=== PATIENT | female | born 1950 | race African-American/Black ===

== ENCOUNTER 2021-12-24 19:42 | Emergency (ER) | payer SELFPAY ==
[~2021-12-24] VITALS: Ht 160 cm; Wt 96.0 kg
[2021-12-24] MEDS ORDERED: ACETAMINOPHEN 325MG TABLET PO ONE (20:00)
[2021-12-24 20:29] LABS: BASOPHILS % 0.8 % (0.0-2.0); EOSINOPHILS % 1.9 % (0.0-5.0); HEMOGLOBIN. 9.9 g/dL (12.0-16.0); LYMPHOCYTES % 16.1 % (20.0-50.0); MEAN CORPUSCULAR HEMOGLOBIN 27.1 pg (28.0-32.0); MEAN CORPUSCULAR VOLUME 82.4 fL (81.0-99.0); MEAN PLATELET VOLUME 7.4 fl (7.4-10.4); MONOCYTES % 6.5 % (2.0-8.0); NEUTROPHILS % 74.7 % (40.0-76.0); PLATELET 435 x1000/uL (130-400); RED BLOOD CELL COUNT 3.64 mill/uL (4.2-5.4); RED CELL DISTRIBUTION WIDTH 17.6 % (11.6-14.6)
[2021-12-24 20:42] LABS: CHLORIDE 106 mEq/L (98-107)
[2021-12-24] MEDS ORDERED: ACET-2708 MT (22:17)
[2021-12-24] MEDS ORDERED: GABA-529 MT (22:17)
[2021-12-25] MEDS ORDERED: GABAPENTIN 100MG CAPSULE PO ONE
[2021-12-25 00:20] VITALS: BP 129/80
== END 2021-12-25 00:25 | disposition home or self-care (01) ==
LOC: ER 19:42
DX: M79.89 Other specified soft tissue disorders (principal); M79.671 Pain in right foot; M79.672 Pain in left foot; E11.9 Type 2 diabetes mellitus without complications; I10 Essential (primary) hypertension
CPT/HCPCS: 36415; 71045; 73630; 80053; 83880; 84484; 85025; 93970; 99285

== ENCOUNTER 2023-11-22 18:00 | Inpatient (IN) | payer BC ==
[~2023-11-22] VITALS: Ht 165.1 cm; Wt 97.5 kg
[~2023-11-22 18:00] MED LIST: ACET-2708 MT; GABA-529 MT
[2023-11-22 19:18] LABS: BASOPHILS % 0.5 % (0.0-2.0); EOSINOPHILS % 2.7 % (0.0-5.0); HEMATOCRIT. 26.7 % (36.0-48.0); HEMOGLOBIN. 8.7 g/dL (12.0-16.0); LYMPHOCYTES % 7.9 % (20.0-50.0); MEAN CORPUSCULAR HEMOGLOBIN 27.1 pg (28.0-32.0); MEAN CORPUSCULAR HGB CONC 32.6 g/dL (31.0-37.0); MEAN CORPUSCULAR VOLUME 83.1 fL (81.0-99.0); NEUTROPHILS % 84.9 % (40.0-76.0); RED BLOOD CELL COUNT 3.21 mill/uL (4.2-5.4); RED CELL DISTRIBUTION WIDTH 18.5 % (11.6-14.6); WHITE BLOOD COUNT 18.6 x1000/uL (4.5-11.0)
[2023-11-22 19:24] LABS: DIFFERENTIAL COMMENT 1
[2023-11-22 19:26] LABS: ALANINE AMINOTRANSFERASE 8 IU/L (10-49); ALBUMIN 3.8 g/dL (3.2-4.8); ASPARTATE AMINOTRANSFERASE 13 IU/L (<34); BILIRUBIN TOTAL 0.3 mg/dL (0.1-1.0); CALCIUM 8.1 mg/dL (8.7-10.4); CARBON DIOXIDE 29 mEq/L (21-32); CHLORIDE 95 mEq/L (98-107); CREATININE 2.5 mg/dL (0.6-1.0); GLUCOSE 169 mg/dL (70-105); POTASSIUM 3.3 mEq/L (3.5-5.1); PROTEIN TOTAL 6.9 g/dL (6.0-8.3); SODIUM 132 mEq/L (136-145); TROPONIN I HIGH SENSITIVITY 6 ng/L (3.0-34); UREA NITROGEN BLOOD 19 mg/dL (9-23)
[2023-11-22 19:53] LABS: PLATELET 225 x1000/uL (130-400)
[2023-11-22] MEDS: SODIUM CHLORIDE 0.9% 1,000 ML IV ONE (21:24)
[2023-11-22] MEDS: CEFTRIAXONE 1GM/50ML 50 ML IV ONE (21:24)
[2023-11-22 22:25] LABS: TROPONIN I HIGH SENSITIVITY 6 ng/L (3.0-34)
[2023-11-23 02:51] VITALS: BP 108/60; PULSE 80; RESP 19; TEMP 97.6
[2023-11-23] MEDS: BLOOD SUGAR DIAGNOSTIC STRIP TEST SCH (06:18)
[2023-11-23] MEDS ORDERED: DEXTROSE 50% WATER 50ML SYRINGE IV PRN (06:30)
[2023-11-23] MEDS ORDERED: BLOOD SUGAR DIAGNOSTIC STRIP TEST SCH (07:10)
[2023-11-23] MEDS: INSULIN LISPRO 100 UNITS/ML SUBCUT SCH (07:40)
[2023-11-23 08:00] VITALS: BP 145/70; PULSE 72; RESP 16; TEMP 98
[2023-11-23] MEDS: AMLODIPINE 10MG TABLET PO SCH (08:55)
[2023-11-23] MEDS: ASPIRIN 81MG TABLET PO SCH (08:55)
[2023-11-23 09:05] LABS: BASOPHILS % 0.4 % (0.0-2.0); EOSINOPHILS % 0.4 % (0.0-5.0); HEMATOCRIT. 25.5 % (36.0-48.0); HEMOGLOBIN. 8.1 g/dL (12.0-16.0); LYMPHOCYTES % 11.9 % (20.0-50.0); MEAN CORPUSCULAR HEMOGLOBIN 26.7 pg (28.0-32.0); MEAN CORPUSCULAR HGB CONC 31.6 g/dL (31.0-37.0); MEAN CORPUSCULAR VOLUME 84.6 fL (81.0-99.0); MEAN PLATELET VOLUME 7.5 fl (7.4-10.4); MONOCYTES % 5.7 % (2.0-8.0); NEUTROPHILS % 81.6 % (40.0-76.0); PLATELET 216 x1000/uL (130-400); RED BLOOD CELL COUNT 3.02 mill/uL (4.2-5.4); RED CELL DISTRIBUTION WIDTH 18.9 % (11.6-14.6); WHITE BLOOD COUNT 12.3 x1000/uL (4.5-11.0)
[2023-11-23 09:14] LABS: CALCIUM 8.9 mg/dL (8.7-10.4); POTASSIUM 4.5 mEq/L (3.5-5.1)
[2023-11-23] MEDS ORDERED: AMLO10TA80 PO (09:16)
[2023-11-23] MEDS ORDERED: INSU100I33 SUBCUT (09:16)
[2023-11-23] MEDS ORDERED: ATOR40TA70 PO (09:16)
[2023-11-23] MEDS ORDERED: MIDO5TAB4 PO (09:16)
[2023-11-23] MEDS ORDERED: OMEP20CA14 PO (09:16)
[2023-11-23] MEDS ORDERED: FURO40TA5 PO (09:16)
[2023-11-23 09:26] LABS: CREATININE 3.3 mg/dL (0.6-1.0)
[2023-11-23 12:00] VITALS: BP 110/72; PULSE 92; RESP 14; TEMP 98
[2023-11-23 14:00] VITALS: BP_SYST 90; BP_SYST 92; BP_DIAS 49; BP_DIAS 55; BP_DIAS 60; PULSE 90; PULSE 92
[2023-11-23 16:00] VITALS: BP 110/72; PULSE 88; RESP 14; TEMP 98
[2023-11-23 20:00] VITALS: BP 94/56; PULSE 85; RESP 20; TEMP 97.5
[2023-11-23] MEDS: ATORVASTATIN CALCIUM 40MG TABLET PO SCH (21:07)
[2023-11-23] MEDS: CEFTRIAXONE 1GM/50ML 50 ML IV SCH (22:41)
[2023-11-23 23:07] LABS: CLARITY URINE TURBID (CLEAR); COLOR URINE DARK YELLOW (YELLOW); GLUCOSE URINE NEGATIVE (NEGATIVE); KETONES URINE NEGATIVE (NEGATIVE); LEUKOCYTE ESTERASE URINE 2+ (NEGATIVE); NITRITE URINE NEGATIVE (NEGATIVE); OCCULT BLOOD URINE NEGATIVE (NEGATIVE); PH URINE 6.5 (4.5-8.0); PROTEIN URINE 3+ (NEGATIVE); SPECIFIC GRAVITY URINE 1.015 (1.005-1.030); UROBILINOGEN URINE 0.2 E.U./dL (0.2-1.0)
[2023-11-23 23:24] LABS: BACTERIA URINE 2+; RBC URINE 0-2 /hpf (0-2); SQUAMOUS EPITHELIAL CELL URINE 2+ /lpf (RARE/1+); WBC URINE 15-25 /hpf (0-2)
[2023-11-24] VITALS (15 sets, daily range): BP systolic 89–119; BP diastolic 41–71; PULSE 70–97; RESP 18–20; TEMP 97.1–98.7
[2023-11-24] MEDS: MIDODRINE HCL 5MG TABLET PO SCH (00:41)
[2023-11-24] MEDS: MIDODRINE HCL 5MG TABLET PO PRN (00:51)
[2023-11-24 06:25] LABS: CALCIUM 7.6 mg/dL (8.7-10.4); PHOSPHORUS 5.7 mg/dL (2.5-4.9); POTASSIUM 3.9 mEq/L (3.5-5.1)
[2023-11-24 06:36] LABS: CREATININE 4.6 mg/dL (0.6-1.0)
[2023-11-25 00:31] VITALS: BP 111/69; PULSE 74; RESP 18; TEMP 98.4
[2023-11-25 04:00] VITALS: BP 121/72; PULSE 92; RESP 20; TEMP 98.5
[2023-11-25 08:00] VITALS: BP 123/73; PULSE 76; RESP 20; TEMP 97.8
[2023-11-25 10:11] VITALS: BP 123/73; PULSE 76; TEMP 97.8; O2SAT 98
== END 2023-11-25 10:33 | disposition home or self-care (01) | DRG 73 ==
LOC: ER 18:00 → 8WST 23:10
PROVIDERS: ADMIT Internal Medicine; ATTEND Internal Medicine
PROC: 5A1D70Z Performance of Urinary Filtration, Intermittent, Less than 6 Hours Per Day (ICD-10-PCS; principal; 2023-11-23)
DX: G90.8 Other disorders of autonomic nervous system (principal); N18.6 End stage renal disease; E87.1 Hypo-osmolality and hyponatremia; I12.0 Hypertensive chronic kidney disease with stage 5 chronic kidney disease or end stage renal disease; E87.6 Hypokalemia; Z68.35 Body mass index [BMI] 35.0-35.9, adult; E11.22 Type 2 diabetes mellitus with diabetic chronic kidney disease; D64.9 Anemia, unspecified; D72.829 Elevated white blood cell count, unspecified; E66.9 Obesity, unspecified; E87.8 Other disorders of electrolyte and fluid balance, not elsewhere classified; Z82.49 Family history of ischemic heart disease and other diseases of the circulatory system; Z83.3 Family history of diabetes mellitus; Z99.2 Dependence on renal dialysis; Z88.0 Allergy status to penicillin; I95.9 Hypotension, unspecified
CPT/HCPCS: 36415; 71045; 80048; 80053; 81003; 82962; 83605; 83880; 84100; 84145; 84484; 85025; 90935; 93005; 93306; 99285; C1893; J0696; J1815; J7030